=== PATIENT | female | born 1970 | race Two or more races ===

== ENCOUNTER 2017-08-05 21:46 | Emergency (ER) | payer OTHER ==
[2017-08-05 21:58] VITALS: BP 118/81; PULSE 103; RESP 16; TEMP 97.9; O2SAT 94
--- NOTE | 2017-08-05 22:13 | EDPHY ---
H & P Time Seen by Provider: 08/05/17 21:50 HPI/ROS: This patient complains of dysesthesia to her scalp in the occipital region described as feeling like ice [place] being poured on her scalp. She states the intensity of the symptoms is mild to moderate but because of its unusual nature she came in for evaluation. She has never had this before. Her recent history is notable for URI symptoms 3 days ago consisting of myalgias, cough in fevers. All of the symptoms have now resolved. The scalp sensation started over the past 24 hours. She notes no exacerbating factors for her symptoms. ROS: No fevers today. No fatigue. No other constitutional symptoms. HEENT: No coryza. No sore throat. No vision changes. Pulmonary: Cough is resolved. No dyspnea. Cardiovascular: No chest pain. GI: No abdominal pain. Normal bowel movements. No nausea. : She reports baseline urinary frequency that she attributes to drinking a lot of water on a daily basis. No dysuria. No urgency. She is postmenopausal. Integumentary: No skin rash. She does have a cold sore on her upper lip and states that she gets these on occasion. Endocrine: Mild polyuria and polydipsia as above that seems to be by habit rather than pathological. No heat intolerance or cold intolerance. Neuro: No headache. No numbness or tingling elsewhere on her body. No focal weakness. No confusion. No vision changes. 10 point ROS is otherwise negative. Smoking Status: Never smoked Physical Exam: Physical exam: Vital signs are normal General: Patient is in no acute distress. HEENT: Is no external evidence of trauma on exam. Eyes: Pupils are equal and reactive to light. Extraocular motions are intact. Optic fundi: Clear with no papilledema or hemorrhage. Nose atraumatic. Ears: Clear bilaterally with no hemotympanum. Oropharynx: No dental trauma or malocclusion. No intraoral lacerations. The patient has a single lesion in her upper lips consistent with a cold sore Eyes: Pupils are equal and reactive to light. Extraocular motions are intact. Optic fundi: Clear with no papilledema or hemorrhage. Lungs: Clear to auscultation bilaterally Neck: Supple no meningismus. Cardiac: Regular rate and rhythm no murmur gallop or rub. Abdomen: Soft nontender no organomegaly Neuro: GCS of 15. Cranial nerves II through XII intact. Cerebellar exam is normal as judged by symmetric rapid hand movements bilaterally. No pronator drift. She has no light touch sensory deficits on her scalp. No sensory or motor deficits are appreciated. She maintains 2+ symmetric patellar DTRs bilaterally Initial differential diagnosis: Undiagnosed diabetes with neuropathy, early zoster symptoms, doubt MS Constitutional: Initial Vital Signs Temperature (C) 36.6 C 08/05/17 21:56 Heart Rate 103 H 08/05/17 21:56 Respiratory Rate 16 08/05/17 21:56 Blood Pressure 118/81 H 08/05/17 21:56 O2 Sat (%) 94 08/05/17 21:56 O2 Delivery Mode Room Air Allergies/Adverse Reactions: No Known Allergies Allergy (Unverified 08/05/17 21:55) Home Medications: Medication Instructions Recorded Tylenol 08/05/17 Valacyclovir HCl [Valtrex] 2,000 mg PO ONCE #2 tablet 08/05/17 MDM/Departure - MDM Medications Given: Discontinued Medications Valacyclovir HCl (Valtrex) 2,000 mg PO EDNOW ONE Stop: 08/05/17 22:23 Last Admin: 08/05/17 22:26 Dose: 2,000 mg ED Course/Re-evaluation: Discussion: Herpes labialis-minor with the dysesthesias of scalp. I appreciate no skin lesions currently under scalp. Early zoster is a possibility for her symptoms. Urinalysis reveals no glucosuria. Do not think she has diabetes with paresthesia. No significant visual deficits on visual acuity testing. No focal neuro symptoms. I doubt [employer] lesion or other concerning for cough times. Patient will follow up with primary care physician with plan to have 2nd dose of Valtrex in the morning for herpes labialis. The Valtrex may also sonata but early zoster if she is having symptoms attributable to that. - Depart Disposition: Home, Routine, Self-Care Clinical Impression: Dysesthesia, Herpes labialis Instructions: Valacyclovir (By mouth) Additional Instructions: Diagnoses:. Dysesthesia of scalp 2. Herpes labialis Plan: Take the Valtrex prescription 2nd dose tomorrow in the morning-2000 mg Your symptoms in the scalp should resolve over the next 1-2 days. Follow up with primary care physician for any ongoing symptoms. Prescriptions: Valacyclovir HCl [Valtrex] 2,000 mg PO ONCE #2 tablet Referrals: NONE *PRIMARY CARE P,. [Primary Care Provider] - As per Instructions
[2017-08-05 22:14] LABS: COLOR YELLOW; LEUKOCYTE ESTERASE,URINE TRACE (NEGATIVE); NITRITE,URINE NEGATIVE (NEGATIVE)
[2017-08-05] MEDS ORDERED: valACYclovir 500 MG TAB PO ONE (22:22)
[2017-08-05 22:34] LABS: MUCUS TRACE /lpf (NONE-1+)
== END 2017-08-05 22:40 | disposition home or self-care (01) ==
LOC: CED 21:46
DX: R20.8 Other disturbances of skin sensation (principal); B00.1 Herpesviral vesicular dermatitis
CPT/HCPCS: 81003-PO; 81015-PO